=== PATIENT | female | born 1955 | race African-American/Black ===

== ENCOUNTER 2020-02-23 11:29 | Inpatient (IN) | payer OTHER ==
[2020-02-23] MEDS ORDERED: ACETAMINOPHEN 325 MG TABLET (FP) PO PRN (14:18)
[2020-02-23] MEDS ORDERED: NICOTINE POLACRILEX 2 MG GUM BUC PRN (14:18)
[2020-02-23] MEDS ORDERED: LOPERAMIDE HCL 2 MG CAPSULE PO PRN (14:18)
[2020-02-23] MEDS ORDERED: MAGNESIUM CITRATE 300 ML BOTTLE PO PRN (14:18)
[2020-02-23] MEDS ORDERED: P-EPHED 60MG/TRIPROLIDI 2.5MG TABLET PO PRN (14:18)
[2020-02-23] MEDS ORDERED: MAG HYDROX/AL HYDROX/SIMETH 30 ML UNIT-DOSE CUP PO PRN (14:18)
[2020-02-23] MEDS ORDERED: MENTHOL/PHENOL 1 EACH UD MM PRN (14:18)
[2020-02-23] MEDS ORDERED: hydrOXYzine PAMOATE 25 MG CAPSULE (FP) PO SCH (18:00)
[2020-02-23] MEDS: MELATONIN 5 MG TABLETS PO SCH (21:30)
[2020-02-23] MEDS: THIAMINE HCL 100 MG TABLET (FP) PO SCH (21:31)
[2020-02-24] MEDS ORDERED: METHADONE HCL 10 MG TABLET PO SCH (06:00)
[2020-02-24] MEDS ORDERED: METHADONE HCL 40 MG DISPERSABLE TABLET ONE (06:03)
[2020-02-24] MEDS ORDERED: METHADONE HCL 10 MG TABLET ONE (06:03)
[2020-02-24] MEDS: METHADONE 40 MG, METHADONE 30 MG PO SCH (06:10)
[2020-02-24] MEDS ORDERED: cloNIDine HCL 0.1 MG TABLET PO ONE (06:49)
[2020-02-24] MEDS: PRENATAL VITAMINS W/ FOLIC ACID TABLET (FP) PO SCH (09:14)
[2020-02-24] MEDS: MAGNESIUM HYDROX 2400MG/30ML ORAL SUSPENSION 30 ML CUP PO PRN (09:15)
[2020-02-24] MEDS: THIAMINE HCL 100 MG TABLET (FP) PO SCH (21:13)
[2020-02-24] MEDS: MELATONIN 5 MG TABLETS PO SCH (21:13)
[2020-02-25] MEDS ORDERED: METHADONE HCL 40 MG DISPERSABLE TABLET ONE (03:20)
[2020-02-25] MEDS ORDERED: METHADONE HCL 10 MG TABLET ONE (03:20)
[2020-02-25] MEDS: METHADONE 40 MG, METHADONE 30 MG PO SCH (06:17)
[2020-02-25] MEDS ORDERED: cloNIDine HCL 0.1 MG TABLET PO ONE (06:17)
[2020-02-25] MEDS: PRENATAL VITAMINS W/ FOLIC ACID TABLET (FP) PO SCH (09:08)
[2020-02-25] MEDS: THIAMINE HCL 100 MG TABLET (FP) PO SCH (21:04)
[2020-02-25] MEDS: MELATONIN 5 MG TABLETS PO SCH (21:04)
[2020-02-26] MEDS ORDERED: METHADONE HCL 10 MG TABLET ONE (05:23)
[2020-02-26] MEDS ORDERED: METHADONE HCL 40 MG DISPERSABLE TABLET ONE (05:23)
[2020-02-26] MEDS: METHADONE 40 MG, METHADONE 30 MG PO SCH (06:13)
[2020-02-26] MEDS: cloNIDine HCL 0.1 MG TABLET PO SCH (07:38)
[2020-02-26] MEDS: PRENATAL VITAMINS W/ FOLIC ACID TABLET (FP) PO SCH (09:41)
[2020-02-26] MEDS: MAGNESIUM HYDROX 2400MG/30ML ORAL SUSPENSION 30 ML CUP PO PRN (09:43)
[2020-02-26] MEDS ORDERED: cloNIDine HCL 0.1 MG TABLET PO SCH (10:00)
[2020-02-26] MEDS: IBUPROFEN 400 MG TABLET (FP) PO PRN (14:59)
[2020-02-26] MEDS: MELATONIN 5 MG TABLETS PO SCH (21:13)
[2020-02-26] MEDS: THIAMINE HCL 100 MG TABLET (FP) PO SCH (21:13)
[2020-02-27] MEDS ORDERED: METHADONE HCL 40 MG DISPERSABLE TABLET ONE (03:19)
[2020-02-27] MEDS ORDERED: METHADONE HCL 10 MG TABLET ONE (03:19)
[2020-02-27] MEDS: METHADONE 40 MG, METHADONE 30 MG PO SCH (06:14)
[2020-02-27] MEDS: cloNIDine HCL 0.1 MG TABLET PO SCH (06:15)
[2020-02-27] MEDS: PRENATAL VITAMINS W/ FOLIC ACID TABLET (FP) PO SCH (09:10)
[2020-02-27] MEDS ORDERED: HYDROCHLOROTHIAZIDE 12.5 MG CAPSULE (FP) PO SCH ×2 (10:00)
[2020-02-27] MEDS ORDERED: LACTULOSE 20 GM/30 ML UDC (FOR ORAL USE ONLY) PO PRN (13:00)
[2020-02-27] MEDS: LACTULOSE 20 GM/30 ML UDC (FOR ORAL USE ONLY) PO SCH (15:15)
[2020-02-27] MEDS: IBUPROFEN 400 MG TABLET (FP) PO PRN (17:54)
[2020-02-27] MEDS: MELATONIN 5 MG TABLETS PO SCH (21:41)
[2020-02-27] MEDS: THIAMINE HCL 100 MG TABLET (FP) PO SCH (21:41)
[2020-02-27] MEDS: DOCUSATE SODIUM 100 MG CAPSULE (FP) PO SCH (21:42)
[2020-02-27] MEDS ORDERED: ALBUTEROL SO4 0.083% IH SOL 2.5 MG/3 ML VIAL.NEB. NEB ONE (22:11)
[2020-02-28] MEDS ORDERED: METHADONE HCL 40 MG DISPERSABLE TABLET ONE (03:17)
[2020-02-28] MEDS ORDERED: METHADONE HCL 10 MG TABLET ONE (03:17)
[2020-02-28] MEDS: METHADONE 40 MG, METHADONE 30 MG PO SCH (06:12)
[2020-02-28] MEDS: cloNIDine HCL 0.1 MG TABLET PO SCH (06:13)
[2020-02-28] MEDS ORDERED: PT OWN MED DRAWER 7, Y5N ONE ×2 (09:27→21:39)
[2020-02-28] MEDS: LACTULOSE 20 GM/30 ML UDC (FOR ORAL USE ONLY) PO SCH (09:48)
[2020-02-28] MEDS: PRENATAL VITAMINS W/ FOLIC ACID TABLET (FP) PO SCH (09:48)
[2020-02-28] MEDS: HYDROCHLOROTHIAZIDE 12.5 MG CAPSULE (FP) PO SCH (18:33)
[2020-02-28] MEDS: THIAMINE HCL 100 MG TABLET (FP) PO SCH (21:06)
[2020-02-28] MEDS: MELATONIN 5 MG TABLETS PO SCH (21:06)
[2020-02-28] MEDS: DOCUSATE SODIUM 100 MG CAPSULE (FP) PO SCH (21:07)
[2020-02-29] MEDS ORDERED: METHADONE HCL 10 MG TABLET ONE (05:25)
[2020-02-29] MEDS ORDERED: METHADONE HCL 40 MG DISPERSABLE TABLET ONE (05:26)
[2020-02-29] MEDS: METHADONE 40 MG, METHADONE 30 MG PO SCH (05:59)
[2020-02-29] MEDS: HYDROCHLOROTHIAZIDE 12.5 MG CAPSULE (FP) PO SCH ×2 (06:00→17:56)
[2020-02-29] MEDS: cloNIDine HCL 0.1 MG TABLET PO SCH (06:00)
[2020-02-29] MEDS: LACTULOSE 20 GM/30 ML UDC (FOR ORAL USE ONLY) PO SCH ×3 (10:07→21:10)
[2020-02-29] MEDS: PRENATAL VITAMINS W/ FOLIC ACID TABLET (FP) PO SCH (10:08)
[2020-02-29] MEDS: IBUPROFEN 400 MG TABLET (FP) PO PRN (10:10)
[2020-02-29] MEDS ORDERED: ACETAMINOPHEN 325 MG TABLET (FP) PO PRN (13:27)
[2020-02-29] MEDS: guaiFENesin 200 MG/10 ML 10 ML UNIT-DOSE CUPS PO PRN (15:23)
[2020-02-29] MEDS: MELATONIN 5 MG TABLETS PO SCH (21:09)
[2020-02-29] MEDS: THIAMINE HCL 100 MG TABLET (FP) PO SCH (21:09)
[2020-02-29] MEDS: DOCUSATE SODIUM 100 MG CAPSULE (FP) PO SCH (21:10)
[2020-02-29] MEDS: ALBUTEROL SO4 HFA INHALER IH PRN (22:53)
[2020-03-01] MEDS ORDERED: METHADONE HCL 40 MG DISPERSABLE TABLET ONE (05:22)
[2020-03-01] MEDS ORDERED: METHADONE HCL 10 MG TABLET ONE (05:22)
[2020-03-01] MEDS: LACTULOSE 20 GM/30 ML UDC (FOR ORAL USE ONLY) PO SCH ×3 (06:24→21:14)
[2020-03-01] MEDS: METHADONE 40 MG, METHADONE 30 MG PO SCH (06:24)
[2020-03-01] MEDS: cloNIDine HCL 0.1 MG TABLET PO SCH (06:24)
[2020-03-01] MEDS: HYDROCHLOROTHIAZIDE 12.5 MG CAPSULE (FP) PO SCH ×2 (06:24→17:56)
[2020-03-01] MEDS: PRENATAL VITAMINS W/ FOLIC ACID TABLET (FP) PO SCH (09:26)
[2020-03-01] MEDS: IBUPROFEN 400 MG TABLET (FP) PO PRN ×2 (09:27→15:32)
[2020-03-01] MEDS: ALBUTEROL SO4 HFA INHALER IH PRN ×2 (15:31→21:14)
[2020-03-01] MEDS: guaiFENesin 200 MG/10 ML 10 ML UNIT-DOSE CUPS PO PRN (15:32)
[2020-03-01] MEDS: MELATONIN 5 MG TABLETS PO SCH (21:13)
[2020-03-01] MEDS: DOCUSATE SODIUM 100 MG CAPSULE (FP) PO SCH (21:13)
[2020-03-01] MEDS: THIAMINE HCL 100 MG TABLET (FP) PO SCH (21:14)
[2020-03-02] MEDS: ALBUTEROL SO4 HFA INHALER IH PRN ×3 (00:47→18:33)
[2020-03-02] MEDS ORDERED: METHADONE HCL 10 MG TABLET ONE (05:23)
[2020-03-02] MEDS ORDERED: METHADONE HCL 40 MG DISPERSABLE TABLET ONE (05:24)
[2020-03-02] MEDS: METHADONE 40 MG, METHADONE 30 MG PO SCH (06:14)
[2020-03-02] MEDS: HYDROCHLOROTHIAZIDE 12.5 MG CAPSULE (FP) PO SCH ×2 (06:15→17:30)
[2020-03-02] MEDS: LACTULOSE 20 GM/30 ML UDC (FOR ORAL USE ONLY) PO SCH ×3 (06:15→21:28)
[2020-03-02] MEDS: cloNIDine HCL 0.1 MG TABLET PO SCH (06:15)
[2020-03-02] MEDS: PRENATAL VITAMINS W/ FOLIC ACID TABLET (FP) PO SCH (10:28)
[2020-03-02] MEDS: IBUPROFEN 400 MG TABLET (FP) PO PRN ×2 (10:29→18:32)
[2020-03-02] MEDS: guaiFENesin 200 MG/10 ML 10 ML UNIT-DOSE CUPS PO PRN (13:37)
[2020-03-02] MEDS: THIAMINE HCL 100 MG TABLET (FP) PO SCH (21:26)
[2020-03-02] MEDS: DOCUSATE SODIUM 100 MG CAPSULE (FP) PO SCH (21:27)
[2020-03-02] MEDS: MELATONIN 5 MG TABLETS PO SCH (21:29)
[2020-03-03] MEDS ORDERED: METHADONE HCL 40 MG DISPERSABLE TABLET ONE (03:20)
[2020-03-03] MEDS ORDERED: METHADONE HCL 10 MG TABLET ONE (03:20)
[2020-03-03] MEDS: METHADONE 40 MG, METHADONE 30 MG PO SCH (05:31)
[2020-03-03] MEDS: HYDROCHLOROTHIAZIDE 12.5 MG CAPSULE (FP) PO SCH ×2 (05:32→18:39)
[2020-03-03] MEDS: IBUPROFEN 400 MG TABLET (FP) PO PRN (05:32)
[2020-03-03] MEDS: LACTULOSE 20 GM/30 ML UDC (FOR ORAL USE ONLY) PO SCH ×3 (05:32→22:03)
[2020-03-03] MEDS: cloNIDine HCL 0.1 MG TABLET PO SCH (05:32)
[2020-03-03] MEDS: PRENATAL VITAMINS W/ FOLIC ACID TABLET (FP) PO SCH (09:22)
[2020-03-03] MEDS: ALBUTEROL SO4 0.083% IH SOL 2.5 MG/3 ML VIAL.NEB. NEB PRN (13:00)
[2020-03-03] MEDS: FLUTICASONE PROP 0.05% 16 GM NASAL SPRAY NS SCH (13:30)
[2020-03-03] MEDS ORDERED: cloNIDine HCL 0.1 MG TABLET PO ONE (21:55)
[2020-03-03] MEDS ORDERED: LISINOPRIL 20 MG TABLET PO ONE (21:57)
[2020-03-03] MEDS: DOCUSATE SODIUM 100 MG CAPSULE (FP) PO SCH (22:03)
[2020-03-03] MEDS: MELATONIN 5 MG TABLETS PO SCH (22:05)
[2020-03-03] MEDS: THIAMINE HCL 100 MG TABLET (FP) PO SCH (22:07)
[2020-03-04] MEDS: IBUPROFEN 400 MG TABLET (FP) PO PRN ×2 (02:49→11:02)
[2020-03-04] MEDS ORDERED: METHADONE HCL 40 MG DISPERSABLE TABLET ONE (03:37)
[2020-03-04] MEDS ORDERED: METHADONE HCL 10 MG TABLET ONE (03:37)
[2020-03-04] MEDS ORDERED: LISINOPRIL 10 MG TABLET PO SCH ×2 (06:00→10:00)
[2020-03-04] MEDS: ALBUTEROL SO4 0.083% IH SOL 2.5 MG/3 ML VIAL.NEB. NEB PRN (06:15)
[2020-03-04] MEDS: cloNIDine HCL 0.1 MG TABLET PO SCH (06:31)
[2020-03-04] MEDS: METHADONE 40 MG, METHADONE 30 MG PO SCH (06:46)
[2020-03-04] MEDS: LACTULOSE 20 GM/30 ML UDC (FOR ORAL USE ONLY) PO SCH ×2 (06:47→13:48)
[2020-03-04] MEDS ORDERED: PT OWN MED DRAWER 7, Y5N ONE (08:57)
[2020-03-04] MEDS: FLUTICASONE PROP 0.05% 16 GM NASAL SPRAY NS SCH (09:53)
[2020-03-04] MEDS: PRENATAL VITAMINS W/ FOLIC ACID TABLET (FP) PO SCH (09:53)
[2020-03-04] MEDS ORDERED: ALBUTEROL SO4 0.083% IH SOL 2.5 MG/3 ML VIAL.NEB. NEB ONE (11:08)
[2020-03-04 11:53] VITALS: BP 146/78; PULSE 68; TEMP 97.3
[2020-03-04 12:34] LABS: BASO % 1.3 % (0-2.0); EOS % 20.6 % (0-4.5); HEMATOCRIT 40.1 % (32.4-45.2); LYMPH % 21.1 % (8-40); MCHC 32.5 g/dl (32.0-36.0); MEAN CELL VOLUME 95.4 fl (80-96); MEAN PLT VOLUME 8.8 fl (7.5-11.1); MONO % 9.1 % (3.8-10.2); NEUT % 47.9 % (42.8-82.8); PLATELET COUNT 280 K/MM3 (134-434); RDW 13.8 % (11.6-15.6); WHITE BLOOD COUNT 6.8 K/mm3 (4.0-10.0)
[2020-03-04 12:37] LABS: POTASSIUM 3.6 mmol/L (3.5-5.1)
[2020-03-04 12:50] LABS: CALCIUM 10.2 mg/dL (8.5-10.1)
[2020-03-04 12:51] LABS: ALBUMIN 4.1 g/dl (3.4-5.0); BLOOD UREA NITROGEN 36.4 mg/dL (7-18)
[2020-03-04 12:54] LABS: CREATININE 1.6 mg/dL (0.55-1.3)
[2020-03-04 12:55] LABS: BILIRUBIN,TOTAL 0.4 mg/dL (0.2-1)
== END 2020-03-04 15:12 | disposition home or self-care (01) | DRG 895 ==
LOC: YASAS 11:29 → Y3E 11:32
PROVIDERS: ADMIT Allergy & Immunology; ATTEND Allergy & Immunology
PROC: HZ42ZZZ Group Counseling for Substance Abuse Treatment, Cognitive-Behavioral (ICD-10-PCS; principal; 2020-02-23)
DX: F10.20 Alcohol dependence, uncomplicated (principal); F14.20 Cocaine dependence, uncomplicated; F13.20 Sedative, hypnotic or anxiolytic dependence, uncomplicated; F11.20 Opioid dependence, uncomplicated; F32.9 Major depressive disorder, single episode, unspecified; I10 Essential (primary) hypertension; N28.9 Disorder of kidney and ureter, unspecified; R05 Cough; R06.02 Shortness of breath; R06.2 Wheezing; R63.4 Abnormal weight loss; Z68.21 Body mass index [BMI] 21.0-21.9, adult
CPT/HCPCS: 36415; 71046-TC-FY; 80048; 80053; 82140; 82550; 82553; 82947; 82962; 84484; 85025; 85027; 85610; 86780; 87389; 93005; 93010; 94640; C9803; J0735; U0003

== ENCOUNTER 2021-07-31 10:09 | Inpatient (IN) | payer OTHER ==
[2021-07-31] MEDS ORDERED: IBUPROFEN 400 MG TABLET (FP) PO PRN (11:10)
[2021-07-31] MEDS ORDERED: BISMUTH SUBSALICYLATE 262 MG/15 ML BTL PO PRN (11:10)
[2021-07-31] MEDS ORDERED: METHOCARBAMOL 500 MG TABLET PO PRN (11:10)
[2021-07-31] MEDS ORDERED: ACETAMINOPHEN 325 MG TABLET (FP) PO PRN ×2 (11:10)
[2021-07-31] MEDS ORDERED: NICOTINE 10 MG CARTRIDGE (INHALER) IH PRN (11:10)
[2021-07-31] MEDS ORDERED: DICYCLOMINE HCL 10 MG CAPSULE PO PRN (11:10)
[2021-07-31] MEDS ORDERED: MAG HYDROX/AL HYDROX/SIMETH 30 ML UNIT-DOSE CUP PO PRN (11:10)
[2021-07-31] MEDS ORDERED: ONDANSETRON *ODT* 4 MG TABLET SL PRN (11:10)
[2021-07-31] MEDS ORDERED: MAGNESIUM HYDROX 2400MG/30ML ORAL SUSPENSION 30 ML CUP PO PRN (11:10)
[2021-07-31] MEDS ORDERED: LOPERAMIDE HCL 2 MG CAPSULE PO PRN (11:10)
[2021-07-31] MEDS ORDERED: MAGNESIUM CITRATE 300 ML BOTTLE PO PRN (11:10)
[2021-07-31 11:27] VITALS: BMI 19.4
[2021-07-31] MEDS: LISINOPRIL 10 MG TABLET PO SCH (14:56)
[2021-07-31] MEDS: PRENATAL VITAMINS W/ FOLIC ACID TABLET (FP) PO SCH (14:56)
[2021-07-31] MEDS: diazePAM 5 MG TABLET PO PRN (14:57)
[2021-07-31] MEDS: NICOTINE 7 MG/24 HOURS TOPICAL PATCH TD SCH (15:03)
[2021-07-31] MEDS: hydrOXYzine PAMOATE 25 MG CAPSULE (FP) PO PRN ×2 (18:02→22:37)
[2021-07-31] MEDS: diazePAM 5 MG TABLET PO SCH ×2 (18:02→22:37)
[2021-07-31] MEDS: THIAMINE HCL 100 MG TABLET (FP) PO SCH (22:37)
[2021-07-31] MEDS: MELATONIN 5 MG TABLETS PO SCH (22:37)
[2021-08-01] MEDS ORDERED: methaDONE HCL 10 MG TABLET ONE (04:37)
[2021-08-01] MEDS ORDERED: methaDONE HCL 40 MG DISPERSABLE TABLET ONE (04:38)
[2021-08-01] MEDS ORDERED: methaDONE HCL 40 MG DISPERSABLE TABLET PO SCH (06:00)
[2021-08-01] MEDS: methaDONE 40 MG, methaDONE 20 MG PO SCH (06:22)
[2021-08-01] MEDS: diazePAM 5 MG TABLET PO SCH ×4 (06:22→22:30)
[2021-08-01] MEDS: LISINOPRIL 10 MG TABLET PO SCH (10:27)
[2021-08-01] MEDS: hydrOXYzine PAMOATE 25 MG CAPSULE (FP) PO PRN (10:27)
[2021-08-01] MEDS: PRENATAL VITAMINS W/ FOLIC ACID TABLET (FP) PO SCH (10:27)
[2021-08-01] MEDS: NICOTINE 7 MG/24 HOURS TOPICAL PATCH TD SCH (10:30)
[2021-08-01 13:20] LABS: CALCIUM 8.8 mg/dL (8.5-10.1)
[2021-08-01 13:22] LABS: BLOOD UREA NITROGEN 28.8 mg/dL (7-18)
[2021-08-01 13:26] LABS: CREATININE 1.7 mg/dL (0.55-1.3); HEMATOCRIT 33.2 % (32.4-45.2); MCH 31.7 pg (25.7-33.7); MEAN CELL VOLUME 95.9 fl (80-96); MEAN PLT VOLUME 9.6 fl (7.5-11.1); PLATELET COUNT 186 10^3/uL (134-434); RBC 3.46 M/mm3 (3.60-5.2); RDW 14.5 % (11.6-15.6); WHITE BLOOD COUNT 3.6 K/mm3 (4.0-10.0)
[2021-08-01 13:29] LABS: TOT PROT 7.1 g/dl (6.4-8.2)
[2021-08-01 13:30] LABS: BILIRUBIN,TOTAL 0.2 mg/dL (0.2-1)
[2021-08-01] MEDS: THIAMINE HCL 100 MG TABLET (FP) PO SCH (22:30)
[2021-08-01] MEDS: MELATONIN 5 MG TABLETS PO SCH (22:30)
[2021-08-02] MEDS ORDERED: methaDONE HCL 40 MG DISPERSABLE TABLET ONE (04:55)
[2021-08-02] MEDS ORDERED: methaDONE HCL 10 MG TABLET ONE (04:55)
[2021-08-02] MEDS: diazePAM 5 MG TABLET PO SCH ×3 (06:22→22:25)
[2021-08-02] MEDS: methaDONE 40 MG, methaDONE 20 MG PO SCH (06:23)
[2021-08-02] MEDS: PRENATAL VITAMINS W/ FOLIC ACID TABLET (FP) PO SCH (10:14)
[2021-08-02] MEDS: diazePAM 5 MG TABLET PO PRN (10:15)
[2021-08-02] MEDS: LISINOPRIL 10 MG TABLET PO SCH (10:15)
[2021-08-02] MEDS: NICOTINE 7 MG/24 HOURS TOPICAL PATCH TD SCH (10:17)
[2021-08-02 16:07] LABS: SARS-CoV-2 NAA Not Detected (Not Detected)
[2021-08-02] MEDS: THIAMINE HCL 100 MG TABLET (FP) PO SCH (22:25)
[2021-08-02] MEDS: MELATONIN 5 MG TABLETS PO SCH (22:25)
[2021-08-02] MEDS: BENZOCAINE/MENTHOL (CHLORASEPTIC ) LOZENGE MM PRN (22:27)
[2021-08-03] MEDS: MINERAL OIL/PETROLAT/WATER TOPICAL CREAM 113 GM JAR TP SCH ×3 (00:06→22:21)
[2021-08-03] MEDS: BENZOCAINE/MENTHOL (CHLORASEPTIC ) LOZENGE MM PRN (04:07)
[2021-08-03] MEDS ORDERED: methaDONE HCL 40 MG DISPERSABLE TABLET ONE (05:28)
[2021-08-03] MEDS ORDERED: methaDONE HCL 10 MG TABLET ONE (05:28)
[2021-08-03] MEDS: methaDONE 40 MG, methaDONE 20 MG PO SCH (05:56)
[2021-08-03] MEDS: diazePAM 5 MG TABLET PO SCH ×2 (05:56→17:51)
[2021-08-03] MEDS: PRENATAL VITAMINS W/ FOLIC ACID TABLET (FP) PO SCH (10:04)
[2021-08-03] MEDS: NICOTINE 7 MG/24 HOURS TOPICAL PATCH TD SCH (10:04)
[2021-08-03] MEDS: LISINOPRIL 10 MG TABLET PO SCH (10:04)
[2021-08-03 12:30] LABS: CALCIUM 9.4 mg/dL (8.5-10.1)
[2021-08-03 12:31] LABS: ALBUMIN 3.2 g/dl (3.4-5.0)
[2021-08-03 12:34] LABS: CREATININE 1.5 mg/dL (0.55-1.3)
[2021-08-03] MEDS: hydrOXYzine PAMOATE 25 MG CAPSULE (FP) PO PRN ×2 (17:50→22:13)
[2021-08-03] MEDS ORDERED: LISINOPRIL 10 MG TABLET PO ONE (22:00)
[2021-08-03] MEDS: MELATONIN 5 MG TABLETS PO SCH (22:13)
[2021-08-03] MEDS: THIAMINE HCL 100 MG TABLET (FP) PO SCH (22:13)
[2021-08-04] MEDS ORDERED: methaDONE HCL 10 MG TABLET ONE (04:49)
[2021-08-04] MEDS ORDERED: methaDONE HCL 40 MG DISPERSABLE TABLET ONE (04:49)
[2021-08-04] MEDS: methaDONE 40 MG, methaDONE 20 MG PO SCH (05:32)
[2021-08-04] MEDS ORDERED: diazePAM 5 MG TABLET PO ONE (06:00)
[2021-08-04 09:22] VITALS: BP 137/101; PULSE 96; TEMP 98.4
[2021-08-04] MEDS ORDERED: LISINOPRIL 10 MG TABLET PO SCH (10:00)
[2021-08-04] MEDS: MINERAL OIL/PETROLAT/WATER TOPICAL CREAM 113 GM JAR TP SCH (10:23)
[2021-08-04] MEDS: PRENATAL VITAMINS W/ FOLIC ACID TABLET (FP) PO SCH (10:23)
== END 2021-08-04 09:27 | disposition home or self-care (01) | DRG 897 ==
LOC: YASAS 10:09 → Y6N 13:04
PROVIDERS: ADMIT Allergy & Immunology; ATTEND Allergy & Immunology
PROC: HZ2ZZZZ Detoxification Services for Substance Abuse Treatment (ICD-10-PCS; principal; 2021-07-31)
DX: F10.230 Alcohol dependence with withdrawal, uncomplicated (principal); F11.20 Opioid dependence, uncomplicated; Z68.1 Body mass index [BMI] 19.9 or less, adult; F13.230 Sedative, hypnotic or anxiolytic dependence with withdrawal, uncomplicated; F17.210 Nicotine dependence, cigarettes, uncomplicated; F41.8 Other specified anxiety disorders; F32.A Depression, unspecified; I10 Essential (primary) hypertension; N28.9 Disorder of kidney and ureter, unspecified; R63.4 Abnormal weight loss
CPT/HCPCS: 36415; 80053; 80069; 85027; 86780; 87811; 93005; 93010; C9803-CS; U0003; U0005